=== PATIENT | female | born 1935 | race Caucasian/White ===

== ENCOUNTER 2017-10-22 18:33 | Inpatient (IN) ==
[2017-10-22] MEDS ORDERED: cefTRIAXone 1,000 MG in SODIUM CHLORIDE 0.9% 100 ML IV STA (19:24)
[2017-10-22] MEDS ORDERED: SODIUM CHLORIDE 0.9% 500 ML IV STA (19:24)
[2017-10-22] MEDS ORDERED: cefTRIAXone 1,000 MG VIAL ONE (19:57)
[2017-10-22 20:21] LABS: Basophils % 0.1 % (0.0-0.8); Eosinophils # 0.1 10*3/uL (0.0-0.87); Eosinophils % 0.8 % (0.00-10.9); Hematocrit 20.1 VOL% (35.7-47.0); Immature Granulocytes % 0.9 %; Immature Granulocytes Absolute 0.12 #; Lymphocytes # 2.3 10*3/uL (1.4-4.0); Lymphocytes % 17.2 % (21.3-54.2); Mean Corpuscular HGB Conc 27.9 GM/DL (32-36); Mean Corpuscular Hemoglobin 22 PG (27-34); Mean Corpuscular Volume 80.4 FL (87-102); Mean Platelet Volume 10.6 FL (9.6-12.0); Monocytes # 0.6 10*3/uL (0.11-0.8); Monocytes % 4.7 % (1.7-12.7); NRBC # 0.03 10*3/uL; Neutrophils # 10.3 10*3/uL (1.4-7.4); Neutrophils % 76.3 % (38.7-73.9); Platelet Count 631 T/CUMM (130-400); Red Cell Distribution Width 16.7 % (9.3-17.3); White Blood Count 13.5 T/CUMM (4-12)
[2017-10-22 20:29] LABS: Hemoglobin 5.6 GM/DL (12.0-16.0)
[2017-10-22 20:48] LABS: Alanine Aminotransferase 37 U/L (13-56); Albumin 2.3 G/DL (3.4-5.0); Alkaline Phosphatase 87 U/L (45-117); Amylase 30 U/L (25-115); Aspartate Amino Transferase 44 U/L (0-37); Bilirubin,Total < 0.39 MG/DL (0.2-1.0); Blood Urea Nitrogen 25 MG/DL (7-18); Calcium 8.6 MG/DL (8.5-10.1); Glucose 147 MG/DL (74-106); Osmolality,Calculated 285.4 MOS/KG (273-304); Potassium 4.2 MMOL/L (3.5-5.1); Sodium 140 MMOL/L (136-145); Total Protein 5.8 G/DL (6.4-8.3)
[2017-10-22 20:49] LABS: Lactic Acid 4.2 MMOL/L (0.4-2.0)
[2017-10-22] MEDS ORDERED: SODIUM CHLORIDE 0.9% 1,450 ML IV ONE (20:57)
[2017-10-22 21:10] LABS: PT Patient Result 10.4 SECS; Partial Thromboplastin Time 27.4 SECS (0-40)
[2017-10-22 21:17] LABS: Apearance,Urine Slightly Hazy (Clear); Bacteria,Urine Many /HPF (Few); Bilirubin,Urine Negative (Negative); Blood, Urine Negative (Negative); Glucose,Urine (UA) Negative (Negative); Hyaline Casts,Urine 1 /LPF (0-3); Ketones,Urine Negative (Negative); Mucus,Urine Occasional /LPF (Occasional); Nitrite,Urine Negative (Negative); Protein,Urine Negative; RBC,Urine 2 /HPF (0-4); Squamous Epithelial Cell,Urine Occasional /HPF (0-10); Urine Color Yellow (Yellow); Urine Specific Gravity 1.015 (1.001-1.035); Urine Urobilinogen < 2.0 EU/DL (0.2-1.0); WBC,Urine <1 /HPF (0-6)
[2017-10-22] MEDS ORDERED: DEXTROSE 50% 25 GM/50 ML VIAL IV PRN (22:11)
[2017-10-22] MEDS ORDERED: GLUCAGON 1 MG VIAL IM PRN (22:11)
[2017-10-22] MEDS ORDERED: ONDANSETRON 4 MG/2 ML VIAL ONE (22:23)
[2017-10-23] MEDS ORDERED: SODIUM CHLORIDE 0.9% 1,000 ML IV PRN (01:42)
[2017-10-23] MEDS: SODIUM CHLORIDE 0.9% 1,000 ML IV SCH ×2 (01:52→16:21)
[2017-10-23] MEDS: SODIUM CHLORIDE 0.45% 1,000 ML IV SCH ×3 (02:28→22:41)
[2017-10-23] MEDS: PIPERACILLIN/TAZOBACTAM 3,375 MG in SODIUM CHLORIDE 0.9% 100 ML IV SCH ×3 (02:34→20:40)
[2017-10-23] MEDS: MULTIVITAMIN (CENTRUM) TABLET PO SCH (08:37)
[2017-10-23] MEDS: RIVASTIGMINE 9.5 MG/24 HR PATCH TRANSDERM SCH (08:37)
[2017-10-23] MEDS: FAMOTIDINE 20 MG TABLET PO SCH (08:37)
[2017-10-23] MEDS: MEMANTINE 5 MG TABLET PO SCH ×2 (08:37→20:52)
[2017-10-23] MEDS: OXYBUTYNIN 5 MG TABLET PO SCH (08:37)
[2017-10-23] MEDS: VITAMIN A & D OINT 56.7 GM TUBE TOP SCH (08:38)
[2017-10-23 10:28] LABS: Basophils % 0.2 % (0.0-0.8); Eosinophils # 0.1 10*3/uL (0.0-0.87); Eosinophils % 1.1 % (0.00-10.9); Hematocrit 27.5 VOL% (35.7-47.0); Hemoglobin 8.5 GM/DL (12.0-16.0); Immature Granulocytes % 0.7 %; Immature Granulocytes Absolute 0.07 #; Mean Corpuscular HGB Conc 30.9 GM/DL (32-36); Mean Corpuscular Hemoglobin 26 PG (27-34); Mean Corpuscular Volume 83.6 FL (87-102); Mean Platelet Volume 10.5 FL (9.6-12.0); Monocytes # 0.6 10*3/uL (0.11-0.8); Monocytes % 5.7 % (1.7-12.7); Neutrophils # 7.6 10*3/uL (1.4-7.4); Neutrophils % 73.3 % (38.7-73.9); Platelet Count 474 T/CUMM (130-400); Red Blood Count 3.29 MC/CUMM (3.8-5.5); Red Cell Distribution Width 16.5 % (9.3-17.3); White Blood Count 10.3 T/CUMM (4-12)
[2017-10-23 10:56] LABS: % Iron Saturation 84.5 % (18-50)
[2017-10-23 10:58] LABS: Albumin 1.9 G/DL (3.4-5.0); Bilirubin,Total 0.9 MG/DL (0.2-1.0); Calcium 7.6 MG/DL (8.5-10.1); Osmolality,Calculated 286.8 MOS/KG (273-304); Potassium 3.9 MMOL/L (3.5-5.1); Total Protein 4.8 G/DL (6.4-8.3)
[2017-10-23 11:00] LABS: Lactic Acid 2.2 MMOL/L (0.4-2.0)
[2017-10-23] MEDS ORDERED: VANCOMYCIN INJ 1,000 MG in SODIUM CHLORIDE 0.9% 250 ML IV ONE (20:00)
[2017-10-23] MEDS: MIRTAZAPINE 15 MG TABLET PO SCH (20:52)
[2017-10-24] MEDS: SODIUM CHLORIDE 0.45% 1,000 ML IV SCH ×2 (04:00→14:30)
[2017-10-24] MEDS: PIPERACILLIN/TAZOBACTAM 3,375 MG in SODIUM CHLORIDE 0.9% 100 ML IV SCH ×3 (04:01→20:00)
[2017-10-24] MEDS: MULTIVITAMIN (CENTRUM) TABLET PO SCH (06:49)
[2017-10-24] MEDS: OXYBUTYNIN 5 MG TABLET PO SCH (06:49)
[2017-10-24 06:56] LABS: Basophils % 0.3 % (0.0-0.8); Eosinophils # 0.1 10*3/uL (0.0-0.87); Eosinophils % 0.9 % (0.00-10.9); Hematocrit 25.9 VOL% (35.7-47.0); Hemoglobin 8.1 GM/DL (12.0-16.0); Immature Granulocytes % 0.7 %; Immature Granulocytes Absolute 0.07 #; Lymphocytes # 2.5 10*3/uL (1.4-4.0); Lymphocytes % 23.1 % (21.3-54.2); Mean Corpuscular HGB Conc 31.3 GM/DL (32-36); Mean Corpuscular Hemoglobin 25 PG (27-34); Mean Corpuscular Volume 80.9 FL (87-102); Mean Platelet Volume 10.5 FL (9.6-12.0); Monocytes # 0.8 10*3/uL (0.11-0.8); Monocytes % 7.4 % (1.7-12.7); Neutrophils # 7.2 10*3/uL (1.4-7.4); Neutrophils % 67.6 % (38.7-73.9); Platelet Count 495 T/CUMM (130-400); Red Cell Distribution Width 16.8 % (9.3-17.3); White Blood Count 10.6 T/CUMM (4-12)
[2017-10-24] MEDS: RIVASTIGMINE 9.5 MG/24 HR PATCH TRANSDERM SCH ×2 (07:00→09:54)
[2017-10-24 07:26] LABS: Albumin 1.8 G/DL (3.4-5.0); Bilirubin,Total 0.7 MG/DL (0.2-1.0); Calcium 7.5 MG/DL (8.5-10.1); Osmolality,Calculated 286.7 MOS/KG (273-304); Potassium 3.9 MMOL/L (3.5-5.1); Total Protein 4.8 G/DL (6.4-8.3)
[2017-10-24] MEDS ORDERED: SODIUM CHLORIDE 0.45% 1,000 ML IV SCH (08:00)
[2017-10-24] MEDS: FAMOTIDINE 20 MG TABLET PO SCH (09:50)
[2017-10-24] MEDS: MEMANTINE 5 MG TABLET PO SCH ×2 (09:50→21:31)
[2017-10-24] MEDS: VITAMIN A & D OINT 56.7 GM TUBE TOP SCH (09:50)
[2017-10-24] MEDS ORDERED: ACETAMINOPHEN 325 MG TABLET PO PRN (18:27)
[2017-10-24] MEDS: MIRTAZAPINE 15 MG TABLET PO SCH (21:31)
[2017-10-25] MEDS: PIPERACILLIN/TAZOBACTAM 3,375 MG in SODIUM CHLORIDE 0.9% 100 ML IV SCH (04:10)
[2017-10-25 05:50] LABS: Basophils % 0.4 % (0.0-0.8); Eosinophils # 0.2 10*3/uL (0.0-0.87); Eosinophils % 1.9 % (0.00-10.9); Hematocrit 25.8 VOL% (35.7-47.0); Hemoglobin 7.9 GM/DL (12.0-16.0); Immature Granulocytes % 0.6 %; Immature Granulocytes Absolute 0.06 #; Lymphocytes # 2.5 10*3/uL (1.4-4.0); Lymphocytes % 24.9 % (21.3-54.2); Mean Corpuscular HGB Conc 30.6 GM/DL (32-36); Mean Corpuscular Hemoglobin 26 PG (27-34); Mean Corpuscular Volume 83.8 FL (87-102); Mean Platelet Volume 10.5 FL (9.6-12.0); Monocytes # 0.7 10*3/uL (0.11-0.8); Monocytes % 7.5 % (1.7-12.7); Neutrophils # 6.4 10*3/uL (1.4-7.4); Neutrophils % 64.7 % (38.7-73.9); Platelet Count 521 T/CUMM (130-400); Red Blood Count 3.08 MC/CUMM (3.8-5.5); Red Cell Distribution Width 17.7 % (9.3-17.3); White Blood Count 9.9 T/CUMM (4-12)
[2017-10-25] MEDS: OXYBUTYNIN 5 MG TABLET PO SCH (06:08)
[2017-10-25] MEDS: MULTIVITAMIN (CENTRUM) TABLET PO SCH (06:08)
[2017-10-25 06:19] LABS: Calcium 8.1 MG/DL (8.5-10.1); Osmolality,Calculated 291.6 MOS/KG (273-304)
[2017-10-25 06:29] LABS: Ferritin 52.4 ng/ml (8-252)
[2017-10-25] MEDS: LEVOFLOXACIN INJ 250 MG in PREMIX 1 EACH IV SCH (10:20)
[2017-10-25] MEDS: FAMOTIDINE 20 MG TABLET PO SCH (10:34)
[2017-10-25] MEDS: MEMANTINE 5 MG TABLET PO SCH ×2 (10:34→23:44)
[2017-10-25] MEDS: RIVASTIGMINE 9.5 MG/24 HR PATCH TRANSDERM SCH (10:35)
[2017-10-25] MEDS: VITAMIN A & D OINT 56.7 GM TUBE TOP SCH (10:38)
[2017-10-25] MEDS ORDERED: SODIUM CHLORIDE 0.9% 1,000 ML IV PRN (12:50)
[2017-10-25] MEDS: MIRTAZAPINE 15 MG TABLET PO SCH (23:44)
[2017-10-26] MEDS: MULTIVITAMIN (CENTRUM) TABLET PO SCH (07:19)
[2017-10-26] MEDS: OXYBUTYNIN 5 MG TABLET PO SCH (07:20)
[2017-10-26 08:14] LABS: Basophils % 0.3 % (0.0-0.8); Eosinophils # 0.2 10*3/uL (0.0-0.87); Eosinophils % 1.9 % (0.00-10.9); Hematocrit 30.9 VOL% (35.7-47.0); Hemoglobin 9.5 GM/DL (12.0-16.0); Immature Granulocytes % 0.4 %; Immature Granulocytes Absolute 0.03 #; Lymphocytes # 2.3 10*3/uL (1.4-4.0); Lymphocytes % 28.7 % (21.3-54.2); Mean Corpuscular HGB Conc 30.7 GM/DL (32-36); Mean Corpuscular Hemoglobin 26 PG (27-34); Mean Corpuscular Volume 83.7 FL (87-102); Mean Platelet Volume 10.2 FL (9.6-12.0); Monocytes # 0.6 10*3/uL (0.11-0.8); Monocytes % 8.1 % (1.7-12.7); Neutrophils # 4.8 10*3/uL (1.4-7.4); Neutrophils % 60.6 % (38.7-73.9); Platelet Count 553 T/CUMM (130-400); Red Blood Count 3.69 MC/CUMM (3.8-5.5); Red Cell Distribution Width 18.8 % (9.3-17.3)
[2017-10-26 08:36] LABS: Osmolality,Calculated 283.8 MOS/KG (273-304)
[2017-10-26] MEDS: MEMANTINE 5 MG TABLET PO SCH ×2 (09:09→21:41)
[2017-10-26] MEDS: VITAMIN A & D OINT 56.7 GM TUBE TOP SCH (09:09)
[2017-10-26] MEDS: RIVASTIGMINE 9.5 MG/24 HR PATCH TRANSDERM SCH (09:09)
[2017-10-26] MEDS: FAMOTIDINE 20 MG TABLET PO SCH (09:09)
[2017-10-26] MEDS: LEVOFLOXACIN INJ 250 MG in PREMIX 1 EACH IV SCH (09:13)
[2017-10-26] MEDS: MIRTAZAPINE 15 MG TABLET PO SCH (21:41)
[2017-10-27 05:56] LABS: Basophils % 0.4 % (0.0-0.8); Eosinophils # 0.2 10*3/uL (0.0-0.87); Eosinophils % 2.4 % (0.00-10.9); Hematocrit 27.8 VOL% (35.7-47.0); Hemoglobin 8.6 GM/DL (12.0-16.0); Immature Granulocytes % 0.4 %; Immature Granulocytes Absolute 0.03 #; Lymphocytes # 2.2 10*3/uL (1.4-4.0); Lymphocytes % 30.8 % (21.3-54.2); Mean Corpuscular HGB Conc 30.9 GM/DL (32-36); Mean Corpuscular Hemoglobin 26 PG (27-34); Mean Platelet Volume 9.9 FL (9.6-12.0); Monocytes # 0.7 10*3/uL (0.11-0.8); Monocytes % 9.4 % (1.7-12.7); Neutrophils # 4.1 10*3/uL (1.4-7.4); Neutrophils % 56.6 % (38.7-73.9); Platelet Count 534 T/CUMM (130-400); Red Blood Count 3.31 MC/CUMM (3.8-5.5); Red Cell Distribution Width 18.8 % (9.3-17.3); White Blood Count 7.2 T/CUMM (4-12)
[2017-10-27 06:30] LABS: Osmolality,Calculated 287.6 MOS/KG (273-304)
[2017-10-27] MEDS: MEMANTINE 5 MG TABLET PO SCH ×2 (09:30→21:01)
[2017-10-27] MEDS: OXYBUTYNIN 5 MG TABLET PO SCH (09:30)
[2017-10-27] MEDS: MULTIVITAMIN (CENTRUM) TABLET PO SCH (09:30)
[2017-10-27] MEDS: RIVASTIGMINE 9.5 MG/24 HR PATCH TRANSDERM SCH (09:30)
[2017-10-27] MEDS: FAMOTIDINE 20 MG TABLET PO SCH (09:30)
[2017-10-27] MEDS: SODIUM CHLORIDE 0.9% IV SCH ×3 (09:31→21:01)
[2017-10-27] MEDS: AMPICILLIN IV SCH ×3 (09:31→21:01)
[2017-10-27] MEDS: VITAMIN A & D OINT 56.7 GM TUBE TOP SCH (09:31)
[2017-10-27] MEDS: MIRTAZAPINE 15 MG TABLET PO SCH (21:01)
[2017-10-28] MEDS: SODIUM CHLORIDE 0.9% IV SCH ×2 (03:09→10:15)
[2017-10-28] MEDS: AMPICILLIN IV SCH ×2 (03:09→10:15)
[2017-10-28] MEDS: MEMANTINE 5 MG TABLET PO SCH (09:41)
[2017-10-28] MEDS: MULTIVITAMIN (CENTRUM) TABLET PO SCH (09:41)
[2017-10-28] MEDS: FAMOTIDINE 20 MG TABLET PO SCH (09:41)
[2017-10-28] MEDS: RIVASTIGMINE 9.5 MG/24 HR PATCH TRANSDERM SCH (09:42)
[2017-10-28] MEDS: OXYBUTYNIN 5 MG TABLET PO SCH (09:42)
[2017-10-28] MEDS: VITAMIN A & D OINT 56.7 GM TUBE TOP SCH (09:43)
[2017-10-28 11:08] VITALS: BP 179/82
== END 2017-10-28 14:40 | DRG 872 ==
LOC: EDUNIT# → EDBD → N.ED 18:33 → SUATTDRO 22:11 → N.EDINP 22:11 → N.CC 23:05 → N.2E 10-24 00:29
PROVIDERS: ADMIT Family Medicine; ATTEND Internal Medicine